=== PATIENT | female | born 1975 | race Caucasian/White ===

== ENCOUNTER 2017-06-24 10:09 | Observation (INO) | payer OTHER ==
[2017-06-24] MEDS ORDERED: HYDROmorphONE/DILAUDID 1 MG/ML INJ IVP ONE (10:29)
[2017-06-24] MEDS ORDERED: NS 1,000 ML IV ONE (10:29)
[2017-06-24] MEDS ORDERED: ONDANSETRON 4 MG/2 ML VIAL IVP ONE (10:29)
[2017-06-24 10:47] LABS: % IMMATURE GRANULYOCYTES 0.4 % (0.0-1.1); ABSOLUTE IMMATURE GRANULOCYTES 0.06 10^3/uL (0.00-0.10); ADD DIFF? NO; ADD MORPH? NO; ADD SCAN? NO; ATYPICAL LYMPHOCYTE FLAG 0 (0-99); FRAGMENT RBC FLAG 0 (0-99); HEMATOCRIT 40.9 % (38.0-47.0); HEMOGLOBIN 14.4 g/dL (12.6-16.3); LEFT SHIFT FLG 0 (0-99); LIPEMIA HEMOLYSIS FLAG 90 (0-99); MEAN CELL HEMOGLOBIN 31.5 pg (27.9-34.1); MEAN CELL HEMOGLOBIN CONCENTR. 35.2 g/dL (32.4-36.7); MEAN CELL VOLUME 89.5 fL (81.5-99.8); MEAN PLATELET VOLUME 9.3 fL (8.7-11.7); PLATELET CLUMPS FLAG 0 (0-99); PLATELET COUNT 328 10^3/uL (150-400); RED BLOOD CELL COUNT 4.57 10^6/uL (4.18-5.33); RED CELL DISTRIBUTION WIDTH 12.8 % (11.5-15.2)
[2017-06-24 11:01] LABS: ALANINE AMINOTRANSFERASE 26 IU/L (9-52); ALBUMIN 3.4 g/dL (3.5-5.0); ALKALINE PHOSPHATASE 40 IU/L (38-126); ANION GAP 10 mEq/L (8-16); ASPARTATE AMINOTRANSFERASE 13 IU/L (14-46); BILIRUBIN,TOTAL 0.7 mg/dL (0.1-1.4); BILIRUBIN-CONJUGATED 0.3 mg/dL (0.0-0.5); BILIRUBIN-UNCONJUGATED 0.4 mg/dL (0.0-1.1); CARBON DIOXIDE 20 mEq/l (22-31); CHLORIDE 107 mEq/L (97-110); CREATININE 0.7 mg/dL (0.6-1.0); GLOMERULAR FILTRATION RATE > 60; GLUCOSE 114 mg/dL (70-100); POTASSIUM 3.9 mEq/L (3.5-5.2); SODIUM 137 mEq/L (134-144); TOTAL PROTEIN 6.3 g/dL (6.3-8.2)
[2017-06-24] MEDS ORDERED: IOPAMIDOL (ISOVUE-300) 100 ML BTL ONE (11:28)
[2017-06-24 11:30] LABS: COLOR YELLOW; LEUKOCYTE ESTERASE,URINE NEGATIVE (NEGATIVE); NITRITE,URINE NEGATIVE (NEGATIVE)
[2017-06-24 11:32] LABS: BACTERIA TRACE /hpf (NONE SEEN); MUCUS TRACE /lpf (NONE-1+)
--- NOTE | 2017-06-24 12:51 | EDPHY ---
H & P Stated Complaint: genralized abd pain n/v/ d - Personal History LMP (Females 10-55): Extended Cycle BCP/Inj Current Tetanus/Diphtheria Vaccine: Yes - Medical/Surgical History Hx Asthma: No Hx Chronic Respiratory Disease: No Hx Diabetes: No Hx Cardiac Disease: No Hx Renal Disease: No Hx Cirrhosis: No Hx Alcoholism: No Hx HIV/AIDS: No Hx Splenectomy or Spleen Trauma: No Other PMH: denies - Social History Smoking Status: Never smoked Time Seen by Provider: 06/24/17 10:12 HPI/ROS: Chief complaint: Abdominal pain History of present illness: This is a 42-year-old female who presents to the emergency department for evaluation of abdominal pain. Patient reports the onset of pain over the last day. She initially described diffuse pain although it has become more prominent on the right side recently. She states last night she had an episode of watery diarrhea described as nonbloody, she subsequently developed cold sweats and then threw up. Symptoms are slowly worsening. She denies specific precipitating factors. She denies alleviating factors. She denies other associated signs or symptoms including no fevers, no urinary symptoms. Review of systems: A 10 point review of systems was obtained and other than described above was negative (Rc Rick) - Physical Exam Exam: General Appearance: Alert, nontoxic. Eyes: Pupils equal and round no pallor or injection. ENT, Mouth: Mucous membranes moist. Respiratory: There are no retractions, lungs are clear to auscultation. Cardiovascular: Regular rate and rhythm. Gastrointestinal: Bowel sounds are present. Patient has diffuse tenderness with mild guarding. Neurological: Alert and oriented. Strength and sensation intact and symmetrical. Skin: Warm and dry, no rashes. Musculoskeletal: Neck is supple non tender. Extremities are symmetrical, full range of motion. Psychiatric: Patient is oriented X 3, there is no agitation. (Rc Rick) Constitutional: Initial Vital Signs Temperature (C) 36.6 C 06/24/17 10:15 Heart Rate 92 06/24/17 10:15 Respiratory Rate 16 06/24/17 10:15 Blood Pressure 141/66 H 06/24/17 10:15 O2 Sat (%) 98 06/24/17 10:15 O2 Delivery Mode Room Air Allergies/Adverse Reactions: shellfish derived Allergy (Intermediate, Verified 06/24/17 15:42) Tingling of mouth/throat Home Medications: Medication Instructions Recorded Lisinopril [Lisinopril] 10 mg PO DAILY 06/24/17 Norethindrone AC-Eth Estradiol 1 tab PO DAILY 06/24/17 [Microgestin 21 1.5-30 Tab] Medical Decision Making - Diagnostics Imaging: Discussed imaging studies w/ outbound call center representative Radiologist ED Course/Re-evaluation: Patient is seen in conjunction with my secondary supervising physician Dr. Addi Epps. Patient presents to the emergency department with abdominal pain. Ultimately she has a concerning abdominal examination. Mild leukocytosis. CT scan however is concerning for a moderate amount of ascites of unclear etiology. Patient will be admitted to the hospitalist service under the care of Dr. Junito Monzon for further evaluation and care. Dr. Brandyn Araujo of surgery will consult on this patient. He has requested that an ultrasound-guided paracentesis be ordered, this is pending at time of dictation. The plan has been discussed with the patient who voiced understanding and agreement with it. (Rc Rick) Differential Diagnosis: Included but not limited to gastritis, gastroenteritis, biliary tract disease, pancreatitis, colitis, appendicitis, diverticulitis, urinary tract disease, , bowel obstruction (Rc Rick) - Data Points Laboratory Results: Laboratory Results 06/24/17 10:25 06/24/17 10:25 Medications Given: Acetaminophen (Tylenol) 650 mg PO Q4HRS PRN PRN Reason: Pain, Mild/Fever, Can Take PO Stop: 12/21/17 15:40 Last Admin: 06/24/17 20:42 Dose: 650 mg Hydromorphone HCl (Dilaudid) 0.2 - 0.4 mg IVP Q4HRS PRN PRN Reason: Pain, Severe Unable to Take PO Stop: 07/04/17 15:46 Last Admin: 06/25/17 03:35 Dose: 0.4 mg Lisinopril (Zestril) 10 mg PO DAILY EVIE Stop: 12/22/17 08:59 Last Admin: 06/25/17 09:08 Dose: 10 mg Miscellaneous Medication (Norethindrone Ac-Eth Estradiol [Microgestin 21 1.5-30 Tab]) 1 tab PO DAILY EVIE Stop: 12/22/17 08:59 Last Admin: 06/25/17 09:08 Dose: Not Given Promethazine HCl (Phenergan) 6.25 - 12.5 mg IVP Q6HRS PRN PRN Reason: Nausea/Vomiting, Use 2nd Stop: 12/21/17 15:46 Last Admin: 06/24/17 21:51 Dose: 6.25 mg Discontinued Medications Hydromorphone HCl (Dilaudid) 0.5 mg IVP EDNOW ONE Stop: 06/24/17 10:30 Last Admin: 06/24/17 10:53 Dose: 0.5 mg Sodium Chloride (Ns) 1,000 mls @ 0 mls/hr IV EDNOW ONE; Wide Open PRN Reason: Protocol Stop: 06/24/17 10:30 Last Admin: 06/24/17 10:52 Dose: 1,000 mls Sodium Chloride (Ns) 1,000 mls @ 125 mls/hr IV CONT EVIE Stop: 12/21/17 15:59 Last Admin: 06/24/17 23:35 Dose: 1,000 mls Ondansetron HCl (Zofran) 4 mg IVP EDNOW ONE Stop: 06/24/17 10:30 Last Admin: 06/24/17 10:52 Dose: 4 mg Departure - Departure Disposition: [facility] Acute Clinical Impression: Abdominal pain Qualifiers: Abdominal location: generalized Qualified Code(s): R10.84 - Generalized abdominal pain Condition: Fair
[2017-06-24] MEDS ORDERED: LIDOCAINE 1% 300 MG/30 ML SDV ONE (13:19)
[2017-06-24 14:20] LABS: INR 0.96 (0.83-1.16); PROTIME(PATIENT) 12.7 SEC (12.0-15.0)
[2017-06-24] MEDS ORDERED: ONDANSETRON 4 MG/2 ML VIAL IVP PRN (15:41)
[2017-06-24] MEDS ORDERED: ONDANSETRON DISINTEGRATING 4 MG TAB PO PRN (15:41)
[2017-06-24] MEDS ORDERED: ACETAMINOPHEN 325 MG TAB PO PRN (15:41)
[2017-06-24] MEDS ORDERED: PROMETHAZINE HCL 25 MG/ML INJ IVP PRN (15:47)
[2017-06-24 15:51] LABS: GLUCOSE, PERITONEAL FLUID 105 mg/dL (55-113)
--- NOTE | 2017-06-24 16:36 | GHP ---
[f rep st] HISTORY AND PHYSICAL DATE OF ADMISSION: 06/24/2017 HISTORY OF PRESENT ILLNESS: This is a 42-year-old female with minimal past medical history, presents with about a 24-hour history of nausea, vomiting, and some diarrhea. She had some abdominal pain, i t was very sharp yesterday. She described it as worse than childbirth. It resolved on its own. She has had some subjective fever and chills. She had 4 bowel movements yesterday, which is uncommon fo r her, the last 2 were liquid, and she also had some vomiting. The bowel movements were neither china k nor bloody. She had no hematemesis or coffee-ground emesis. She has had some subjective fevers an d chills. She has noticed perhaps some increased abdominal girth recently. She was recently diagnosed with hypertension at her primary care physician's office and started on li sinopril. Additionally, she had a hemorrhoid that burst and had some blood. She had no melena. The re is no family history of ovarian cancer. She is premenopausal. REVIEW OF SYSTEMS: Complete 10-point review of systems conducted, negative except as in the HPI. PAST MEDICAL HISTORY: Hypertension. She has had 3 children. ALLERGIES: Shellfish. MEDICATIONS: Oral contraceptives and lisinopril. FAMILY HISTORY: Notable for heart disease. Her father has advanced heart failure with an AICD and a pacemaker. PHYSICAL EXAMINATION: VITAL SIGNS: Temp 36.6, blood pressure 141/66, pulse 92, breathing 16 times a minute, 98% on room air. GENERAL: No acute distress. HEENT: Sclerae anicteric. Oropharynx clear . Mucous membranes are moist. NECK: Supple. No lymphadenopathy or JVD. LUNGS: Clear to ausculta tion bilaterally. HEART: S1, S2. ABDOMEN: Soft. There is some diffuse tenderness without rebound or guarding. There is no fluid wave. LOWER EXTREMITIES: No edema. Calves are nontender. SKIN: Without rash. NEUROLOGIC: Nonfocal. LABORATORY DATA: Sodium 137, potassium 3.9, chloride 107, bicarb 20, BUN 7, creatinine 0.7, glucose 114. LFTs normal. Lipase normal. Beta HCG is negative. Coags normal. White count 13.45, hematocr it 41, platelets are 328,000. UA is unremarkable. She has a peritoneal ascites fluid that is pendin g. CAT scan of the abdomen shows [id number]-ag-tjwapalr ascites, mesenteric lymphadenitis, too small to c haracterize hypodensities in the liver. I have discussed the case REGINALDO Michel, in the emergency d epartment. ASSESSMENT/PLAN: This is a 42-year-old female, with likely viral gastroenteritis and a small amount of ascites. 1. Likely viral gastroenteritis. She has nausea, vomiting, diarrhea, subjective fevers, and what so unds like gas pains yesterday, with an unconcerning abdominal examination. We will provide symptomat ic relief with intravenous pain medicines, intravenous antiemetics, and intravenous fluids. No antib iotics indicated. This does not sound like Clostridium difficile. 2. Ascites. I suspect this is just a result of her viral illness. She has had paracenteses perform ed we will follow up on those test results. Notably, there was no ovarian pathology described in her CT scan. 3. Hypertension. We will continue her on lisinopril. 4. Prophylaxis. Pharmacologic prophylaxis indicated if in the hospital longer than 24 hours. DISPOSITION: Observation status. /[id number]/MODL
[2017-06-24] MEDS: NS 1,000 ML IV SCH ×2 (17:01→23:35)
--- NOTE | 2017-06-24 17:42 | GCON ---
[f rep st] CONSULTATION DATE OF CONSULTATION: 06/24/2017 REASON FOR CONSULTATION: Asked to see the patient by the emergency room physician in regard to abdom inal pain. HISTORY OF PRESENT ILLNESS: This 42-year-old female was in good health, but yesterday began having a bdominal pain. She vomited several times, had diarrhea several times. She has diffuse mild abdomina l pain. ALLERGIES: None. CURRENT MEDICATIONS: Lisinopril, control pills. REVIEW OF SYSTEMS: Denies asthma, heart trouble, diabetes, epilepsy, rheumatic fever. Suffers only from hypertension. PREVIOUS SURGERY: Urethra dilatation as a child. SOCIAL HISTORY: Nonsmoker. No alcohol use. PAST MEDICAL HISTORY: 3, para 3. PHYSICAL EXAM: GENERAL: Pleasant, mildly obese female. HEENT: No scleral icterus. Pharynx clear. NECK: Supple without adenopathy. LUNGS: Clear. HEART: Normal S1, S2 without murmur. ABDOMEN: Soft, but diffuse mild tenderness and mild rebound. No guarding. No masses. EXTREMITIES/NEUROLOGI C: Exams grossly unremarkable. LABORATORY STUDIES: White blood count is 13,000 with hematocrit of 40.9, neutrophils 73%. The remai nder of laboratory exams are unremarkable. CT scan is reviewed, showing moderate ascites in the abdomen, some small bowel wall thickening consis tent with an enteritis, and lack of any other focal explanation of abdominal pain. ASSESSMENT: Probable gastroenteritis/serositis. PLAN: I have recommended a paracentesis and unless bacteria are other obviously concerning findings are present, I would recommend expectant management, IV fluid support, serial physical exam, etc. Th e differential would include much less likely ruptured ovarian cyst, although this is a large amount of ascites. No sign of perforation or other appendicitis or focal problem. /[id number]/MODL
[2017-06-24] MEDS: HYDROmorphONE/DILAUDID 1 MG/ML INJ IVP PRN ×2 (18:02→21:52)
[2017-06-25] MEDS: HYDROmorphONE/DILAUDID 1 MG/ML INJ IVP PRN (03:35)
[2017-06-25 05:02] LABS: % IMMATURE GRANULYOCYTES 0.4 % (0.0-1.1); ABSOLUTE IMMATURE GRANULOCYTES 0.03 10^3/uL (0.00-0.10); ADD DIFF? NO; ADD MORPH? NO; ADD SCAN? NO; ATYPICAL LYMPHOCYTE FLAG 0 (0-99); FRAGMENT RBC FLAG 0 (0-99); HEMATOCRIT 33.7 % (38.0-47.0); HEMOGLOBIN 11.1 g/dL (12.6-16.3); LEFT SHIFT FLG 0 (0-99); LIPEMIA HEMOLYSIS FLAG 80 (0-99); MEAN CELL HEMOGLOBIN 30.8 pg (27.9-34.1); MEAN CELL HEMOGLOBIN CONCENTR. 32.9 g/dL (32.4-36.7); MEAN CELL VOLUME 93.6 fL (81.5-99.8); MEAN PLATELET VOLUME 9.6 fL (8.7-11.7); PLATELET CLUMPS FLAG 10 (0-99); PLATELET COUNT 233 10^3/uL (150-400); RED CELL DISTRIBUTION WIDTH 12.8 % (11.5-15.2)
[2017-06-25 05:18] LABS: ANION GAP 8 mEq/L (8-16); CALCIUM 7.9 mg/dL (8.5-10.4); CARBON DIOXIDE 24 mEq/l (22-31); CHLORIDE 109 mEq/L (97-110); CREATININE 0.8 mg/dL (0.6-1.0); GLOMERULAR FILTRATION RATE > 60; GLUCOSE 93 mg/dL (70-100); SODIUM 141 mEq/L (134-144)
[2017-06-25 07:52] VITALS: O2SAT 94
[2017-06-25] MEDS ORDERED: LISINOPRIL 10 MG TAB PO SCH (09:00)
[2017-06-25] MEDS ORDERED: NORETHINDRONE AC ETH ESTRADIOL PO SCH (09:00)
--- NOTE | 2017-06-25 09:36 | HOSPPROG ---
Hospitalist Progress Note Assessment/Plan: 42 yo F w htn here w likely vial gastroenteritis and ascites ascites: fluid studies suggestive of inflammatory not infectious suspect this is 2/2 viral infecion given mesenteric lymphadenitis and symptom complex echo ordered to eval for pulm htn as source of exaggerated amount of ascites viral gastroenteritis: advance diet euvolemic proph: enox htn: lisinopril dispo: likely home later if tolerates orals and echo OK Subjective: case d/e dr melendez. diarrhea overnight Objective: Vital Signs Temp Pulse Resp BP Pulse Ox 36.6 C 65 14 133/77 H 94 06/25/17 07:49 06/25/17 07:49 06/25/17 07:49 06/25/17 07:49 06/25/17 07:49 Microbiology 06/24/17 15:17 Gram Stain - Final Peritoneal Fluid - Aspirate Laboratory Results 06/25/17 04:45 06/25/17 04:45 06/24/17 06/25/17 06/26/17 05:59 05:59 05:59 Intake Total 1570 Output Total 400 Balance 1170 PT 12.7 SEC (12.0-15.0) 06/24/17 10:35 INR 0.96 (0.83-1.16) 06/24/17 10:35 - Physical Exam Constitutional: no apparent distress, appears nourished Eyes: PERRL, anicteric sclera Ears, Nose, Mouth, Throat: moist mucous membranes, hearing normal Cardiovascular: regular rate and rhythym, no murmur, rub, or gallop Respiratory: no respiratory distress, no rales or rhonchi Gastrointestinal: tenderness, No ascites, No guarding, No rebound Genitourinary: no bladder fullness, No tomas in urethra Skin: warm, normal color Musculoskeletal: full muscle strength Neurologic: AAOx3 ICD10 Worksheet Patient Problems: Problems Problem Status Onset Abdominal pain Acute
--- NOTE | 2017-06-25 11:01 | ECHO ---
[email or web address] [address] Main: [phone] Fax: [email or web address] Echocardiogram Name: PEPE ZHOU MR#: [id number] Study Date: 06/25/2017 Study Time: 08:26 AM Date of : 1975 Age: 42 year(s) Height: ( ) Weight: ( ) BSA: Gender: Female Examination: Echo Indication: Question pulmonary HTN Image Quality: Contrast: Requested by: Junito Monzon BP: 138 mmHg/80 mmHg Heart Rate: Rhythm: Indication: Question pulmonary HTN Procedure Staff Surgical Assistant Certified: Violeta Rice Physician: Rusty Murillo Requesting Provider: Conclusions: Borderline concentric LV hypertrophy. Normal global systolic LV function. EF is 70 %. Diastolic dysfunction is present. . Mild mitral valve regurgitation is present. Measurements: Chambers Valvular Assessment AV/MV Valvular Assessment TV/PV Normal Normal Normal Name Value Range Name Value Range Name Value Range Ao [place] (MM): 3.2 cm (2.2 cm-3.7 AV Vmax: 1.07 m/s (1 m/s-1.7 TR Vmax: 2.69 mm/s ( - ) cm) m/s) TR PGmax: 29 mmHg ( - ) IVSd (2D): 1.3 cm (0.6 cm-1.1 AV maxP mmHg ( - ) syst. PAP: 34 mmHg ( - ) cm) MV E Vmax: 0.80 m/s ( - ) LVDd (2D): 4.6 cm (3.9 cm-5.3 MV A Vmax: 0.58 m/s ( - ) cm) MV E/A: 1.38 ( - ) LVDs (2D): 2.8 cm (2.1 cm-4 cm) LVPWd (2D): 1.2 cm ( - ) LVEF (MOD4): 70 % (>=55 %) Continued Measurements: Chambers Valvular Assessment AV/MV Valvular Assessment TV/PV Name Value Name Value Name Value LADs: 4.1 cm MV E/E' Septal: 10.30 CVP (est.): 5 mmHg LADs Lon.2 cm MV E/E' Lateral: 8.50 LA Area: 19.0 cm2 Patient: PEPE ZHOU Study Date: 06/25/2017 Page 1 of 2 08:26 AM Findings: Left Ventricle: Normal size left ventricle. Borderline concentric LV hypertrophy. Normal global systolic LV function. EF is 70 %. No regional wall motion abnormality. Diastolic dysfunction is present. . Right Ventricle: Normal size right ventricle. Left Atrium: The left atrium is normal in size. Right Atrium: The right atrium is normal in size. Mitral Valve: The mitral valve is normal in appearance and function. Mild mitral valve regurgitation is present. Aortic Valve: The aortic valve is normal in appearance and function. Tricuspid Valve: The tricuspid valve is normal in appearance and function. Trivial tricuspid valve regurgitation. The pulmonary artery pressure is normal. Pulmonic Valve: The pulmonic valve is normal in appearance and function. Aorta: The aorta is normal. Pericardium: No pericardial effusion. (No Signature Object) Patient: PEPE ZHOU Study Date: 06/25/2017 Page 2 of 2 08:26 AM [id number]
[2017-06-25 12:21] VITALS: BP 132/70; PULSE 66; RESP 18; TEMP 98.2
--- NOTE | 2017-06-25 17:21 | GDS ---
[f rep st] DISCHARGE SUMMARY DISCHARGE DIAGNOSES: 1. Mild gastritis. 2. Hypertension. 3. Ascites. Please see admission history and physical by Dr. Junito Monzon. HOSPITAL COURSE: The patient presented with abdominal pain, nausea, vomiting, diarrhea, consistent w ith a viral syndrome. She had abdominal CT scan showing ovarian pathology. She did have moderate as cites. This was sampled in a paracentesis, showing leukocytosis with 30 neutrophils, which is not a particularly high amount, although it is higher than normal. She had normal protein and glucose. Th e cytology was sent and is pending at this time. This was felt secondary to her viral syndrome, as h er CT also showed mesenteric lymphadenitis, and her syndrome complex is quite consistent with a viral gastroenteritis. She had also echocardiogram to evaluate for pulmonary hypertension, which showed no evidence of pulmo nary hypertension. She did have LVH and diastolic dysfunction. The patient is discharged home. I w ill follow up on her outpatient cytology. She had no evidence of liver disease on the CAT scan. She had a normal INR and normal LFTs. She had a CA-125 sent, which was well within normal limits, and beta HCG negative. On discharged nba e, no prescriptions. /[id number]/MODL
== END 2017-06-25 14:05 | disposition home or self-care (01) ==
LOC: INTOOBSV 13:09 → F1N 15:24
PROVIDERS: ADMIT Internal Medicine; ATTEND Internal Medicine
PROC: 0W9G3ZZ Drainage of Peritoneal Cavity, Percutaneous Approach (ICD-10-PCS; principal; 2017-06-24)
DX: B34.9 Viral infection, unspecified (principal); I10 Essential (primary) hypertension
CPT/HCPCS: 49083; 74177; 93306; G0378; 86304-90; 96374; J1170; J2405; J2550; Q9967

== ENCOUNTER 2018-09-06 20:34 | Emergency (ER) | payer OTHER ==
[2018-09-06] MEDS ORDERED: NS 1,000 ML IV ONE (21:14)
--- NOTE | 2018-09-06 21:14 | EDPHY ---
H & P Stated Complaint: "Fast heart rate earlier up to 199", lightheaded Time Seen by Provider: 09/06/18 21:07 HPI/ROS: CHIEF COMPLAINT: Tachycardia HISTORY OF PRESENT ILLNESS: Patient is a 43-year-old female who reports a history of intermittent tachycardic episodes. She had 1 today around 5:00 a.m. And she states that her pulse was up to 199. She felt lightheaded. It persisted for about an hour and then resolved spontaneously. She called her doctor's office who recommended she come to the ER. She states that this happens about once per month and typically resolve spontaneously. She has never been able to catch it on EKG. She has not had any chest pain or shortness of breath. No fevers or recent illness. She is now asymptomatic. She is slightly tachycardic at triage but is 96 in the room. Her EKG shows sinus rhythm. Severity: Moderate Modifying factors: Resolved REVIEW OF SYSTEMS: Constitutional: denies: chills, fever, recent illness, recent injury EENTM: denies: blurred vision, double vision, nose congestion Respiratory: denies: cough, shortness of breath Cardiac: See HPI Gastrointestinal/Abdominal: denies: abdominal pain, diarrhea, nausea, vomiting, blood streaked stools Genitourinary: denies: dysuria, frequency, hematuria, pain Musculoskeletal: denies: joint pain, muscle pain Skin: denies: lesions, rash, jaundice, bruising Neurological: denies: headache, numbness, paresthesia, tingling, dizziness, weakness Hematologic/Lymphatic: denies: blood clots, easy bleeding, easy bruising Immunologic/allergic: denies: HIV/AIDS, transplant 10 systems reviewed and negative except as noted EXAM: GENERAL: Well-appearing, well-nourished and in no acute distress. HEAD: Atraumatic, normocephalic. EYES: Pupils equal round and reactive to light, extraocular movements intact, sclera anicteric, conjunctiva are normal. ENT: TMs normal, nares patent, oropharynx clear without exudates. Moist mucous membranes. NECK: Normal range of motion, supple without lymphadenopathy or JVD. LUNGS: Breath sounds clear to auscultation bilaterally and equal. No wheezes rales or rhonchi. HEART: Regular rate and rhythm without murmurs, rubs or gallops. ABDOMEN: Soft, nontender, normoactive bowel sounds. No guarding, no rebound. No masses appreciated. BACK: No CVA tenderness, no spinal tenderness, step-offs or deformities EXTREMITIES: Normal range of motion, no pitting or edema. No clubbing or cyanosis. NEUROLOGICAL: Cranial nerves II through XII grossly intact. Normal speech, normal gait. 5/5 strength, normal movement in all extremities, normal sensation , normal reflexes PSYCH: Normal mood, normal affect. SKIN: Warm, dry, normal turgor, no visible rashes or lesions. Source: Patient, Family - Personal History LMP (Females 10-55): 22-28 Days Ago Current Tetanus Diphtheria and Acellular Pertussis (TDAP): Yes Tetanus Vaccine Date: 2010 - Medical/Surgical History Hx Asthma: No Hx Chronic Respiratory Disease: No Hx Diabetes: No Hx Cardiac Disease: No Hx Renal Disease: No Hx Cirrhosis: No Hx Alcoholism: No Hx HIV/AIDS: No Hx Splenectomy or Spleen Trauma: No Other PMH: 3 vaginal deliveries, urethral stretch as child, HTN, DM - Family History Significant Family History: No pertinent family hx - Social History Smoking Status: Never smoked Alcohol Use: Sober Drug Use: None Constitutional: Initial Vital Signs Temperature (C) 36.8 C 09/06/18 20:39 Heart Rate 120 H 09/06/18 20:39 Respiratory Rate 20 09/06/18 20:39 Blood Pressure 154/88 H 09/06/18 20:39 O2 Sat (%) 96 09/06/18 20:39 O2 Delivery Mode Room Air O2 (L/minute) 2 Allergies/Adverse Reactions: shellfish derived Allergy (Intermediate, Verified 09/06/18 20:39) Tingling of mouth/throat Home Medications: Medication Instructions Recorded Lisinopril 10 mg PO DAILY 06/24/17 Norethindrone AC-Eth Estradiol 1 tab PO DAILY 06/24/17 [Microgestin 21 1.5-30 Tab] Medical Decision Making - Diagnostics EKG Interpretation: An EKG obtained and was read and documented in trace view. Please see trace view for full reading and report. Sinus tachycardia, no acute ischemic changes ED Course/Re-evaluation: Patient has not had any further symptoms here in the emergency department her lab work is reassuring. We discussed follow-up with her primary for Holter monitoring. I also recommended she return to the ER or urgent care if she develops the the symptoms again. Differential Diagnosis: Partial list of the Differential diagnosis considered include but were not limited to; SVT, Afib, Anxiety and although unlikely based on the history and physical exam, I also considered the infection, acute coronary disease. I discussed these differential diagnoses and the plan with the patient as well as the usual and expected course. The patient understands that the diagnosis is provisional and that in medicine we are not always correct and that further workup is often warranted. Usual and customary warnings were given. All of the patient's questions were answered. The patient was instructed to return to the emergency department should the symptoms at all worsen or return, otherwise to followup with the physician as we discussed. - Data Points Laboratory Results: Laboratory Results 09/06/18 20:59 09/06/18 20:59 09/06/18 09/06/18 09/06/18 21:18 20:59 20:59 WBC 10.68 10^3/uL H 10^3/uL (3.80-9.50) RBC 4.21 10^6/uL 10^6/uL (4.18-5.33) Hgb 13.0 g/dL g/dL (12.6-16.3) POC Hgb 12.9 gm/dL gm/dL (12.6-16.3) Hct 37.6 % L % (38.0-47.0) POC Hct 38 % % (38-47) MCV 89.3 fL fL (81.5-99.8) MCH 30.9 pg pg (27.9-34.1) MCHC 34.6 g/dL g/dL (32.4-36.7) RDW 12.4 % % (11.5-15.2) Plt Count 377 10^3/uL 10^3/uL (150-400) MPV 9.3 fL fL (8.7-11.7) Neut % (Auto) 71.1 % % (39.3-74.2) Lymph % (Auto) 21.6 % % (15.0-45.0) Calloway % (Auto) 6.1 % % (4.5-13.0) Eos % (Auto) 0.4 % L % (0.6-7.6) Baso % (Auto) 0.4 % % (0.3-1.7) Nucleat RBC Rel Count 0.0 % % (0.0-0.2) Absolute Neuts (auto) 7.60 10^3/uL H 10^3/uL (1.70-6.50) Absolute Lymphs (auto) 2.31 10^3/uL 10^3/uL (1.00-3.00) Absolute Monos (auto) 0.65 10^3/uL 10^3/uL (0.30-0.80) Absolute Eos (auto) 0.04 10^3/uL 10^3/uL (0.03-0.40) Absolute Basos (auto) 0.04 10^3/uL 10^3/uL (0.02-0.10) Absolute Nucleated RBC 0.00 10^3/uL 10^3/uL (0-0.01) Immature Gran % 0.4 % % (0.0-1.1) Immature Gran # 0.04 10^3/uL 10^3/uL (0.00-0.10) POC Sodium 141 mEq/L mEq/L (135-145) Sodium 137 mEq/L mEq/L (135-145) POC Potassium 3.5 mEq/L mEq/L (3.3-5.0) Potassium 3.8 mEq/L mEq/L (3.5-5.2) POC Chloride 109 mEq/L mEq/L (97-110) Chloride 108 mEq/L mEq/L (97-110) Carbon Dioxide 20 mEq/l L mEq/l (22-31) Anion Gap 9 mEq/L mEq/L (6-14) POC BUN 4 mg/dL L mg/dL (7-23) BUN 7 mg/dL mg/dL (7-23) Creatinine 0.7 mg/dL mg/dL (0.6-1.0) POC Creatinine 0.7 mg/dL mg/dL (0.6-1.0) Estimated GFR > 60 Glucose 160 mg/dL H mg/dL (70-100) POC Glucose 159 mg/dL H mg/dL (70-100) Calcium 10.1 mg/dL mg/dL (8.5-10.4) POC Troponin I TSH 1.030 uIU/mL uIU/mL (0.465-4.680) 09/06/18 20:58 WBC RBC Hgb POC Hgb Hct POC Hct MCV MCH MCHC RDW Plt Count MPV Neut % (Auto) Lymph % (Auto) Calloway % (Auto) Eos % (Auto) Baso % (Auto) Nucleat RBC Rel Count Absolute Neuts (auto) Absolute Lymphs (auto) Absolute Monos (auto) Absolute Eos (auto) Absolute Basos (auto) Absolute Nucleated RBC Immature Gran % Immature Gran # POC Sodium Sodium POC Potassium Potassium POC Chloride Chloride Carbon Dioxide Anion Gap POC BUN BUN Creatinine POC Creatinine Estimated GFR Glucose POC Glucose Calcium POC Troponin I 0.02 ng/mL ng/mL (0.00-0.08) TSH Medications Given: Discontinued Medications Sodium Chloride (Ns) 1,000 mls @ 0 mls/hr IV EDNOW ONE; Wide Open PRN Reason: Protocol Stop: 09/06/18 21:15 Last Admin: 09/06/18 21:21 Dose: 1,000 mls Point of Care Test Results: Chemistry 09/06/18 09/06/18 21:18 20:58 POC Sodium 141 mEq/L mEq/L (135-145) POC Potassium 3.5 mEq/L mEq/L (3.3-5.0) POC Chloride 109 mEq/L mEq/L (97-110) POC BUN 4 mg/dL L mg/dL (7-23) POC Creatinine 0.7 mg/dL mg/dL (0.6-1.0) POC Glucose 159 mg/dL H mg/dL (70-100) POC Troponin I 0.02 ng/mL ng/mL (0.00-0.08) ISTAT H&H 09/06/18 21:18 POC Hgb 12.9 gm/dL gm/dL (12.6-16.3) POC Hct 38 % % (38-47) Departure - Departure Disposition: Home, Routine, Self-Care Clinical Impression: Palpitations Condition: Fair Instructions: Supraventricular Tachycardia (ED) Referrals: Kira Pascal MD [Primary Care Provider] - 2-3 days, call for appt.
[2018-09-06 21:20] LABS: PLATELET COUNT 377 10^3/uL (150-400)
--- NOTE | 2018-09-06 21:24 | CPEKG ---
Test Reason : OPEN Blood Pressure : / mmHG Vent. Rate : 107 BPM Atrial Rate : 109 BPM P-R Int : 139 ms QRS Dur : 086 ms QT Int : 333 ms P-R-T Axes : 040 023 034 degrees QTc Int : 445 ms Sinus tachycardia Confirmed by Alvarado Martinez ([id number]) on 09/06/2018 9:23:30 PM Referred By: Confirmed By:Alvarado Martinez
[2018-09-06 22:19] VITALS: BP 142/87
== END 2018-09-06 22:18 | disposition home or self-care (01) ==
DX: R00.2 Palpitations (principal); E86.9 Volume depletion, unspecified
CPT/HCPCS: 82435-PO; 82565-PO; 82947-PO; 84132-PO; 84295-PO; 84484-ER; 84520-PO; 85014-ER